=== PATIENT | female | born 1960 | race Caucasian/White ===

== ENCOUNTER → 2023-08-21 11:23 | Outpatient (CLI) | payer OTHER, SELFPAY ==
--- NOTE | 2023-08-21 11:27 | DI.MG.S_ITS ---
BILATERAL DIGITAL SCREENING MAMMOGRAM 3D/2D WITH CAD: 08/21/2023 CLINICAL: Routine screening. Baseline exam. No prior exams were available for comparison. Both breasts are heterogeneously dense, which may obscure small masses (category c / 51-75% glandular tissue). Current study was also evaluated with a Computer Aided Detection (CAD) system. No significant masses, calcifications, or other findings are seen in either breast. IMPRESSION: NEGATIVE There is no mammographic evidence of malignancy. A 1 year screening mammogram is recommended. Based on the Tyrer Cuzick model (a risk assessment model) the patient's lifetime risk is 5.9% and her 10 year risk is 2.6%. According to the ACR, ACS, and NCCN guidelines, an annual breast MRI exam along with mammogram is recommended if the patient's lifetime risk is 20% or greater. This exam was interpreted at Station ID: [id number]. NOTE: For mammograms, a report in lay terms will be sent to the patient. Approximately 15% of breast malignancies will not be visualized mammographically. In the management of a palpable breast mass, a negative mammogram must not discourage biopsy of a clinically suspicious lesion. Electronically Signed By: Wellington [email or web address]:08/21/2023 16:31:11 letter sent: Normal Exam ACR BI-RADS Category 1: Negative [id number]
--- NOTE | 2023-08-21 11:27 | DI.RAD.S_ITS ---
PROCEDURE: XR DEXA AXIAL SKELETON INDICATIONS: ROUTINE SCREENING COMPARISON: None. FINDINGS: Lumbar Spine: Bone mineral density 0.90 g/cm2, T score -1.4,. Left Hip: Bone mineral density 0.79 g/cm2, T score -1.3,. Left Femoral Neck: Bone mineral density is 0.67 g/cm2, T score -1.7,. Right Hip: Bone mineral density 0.74 g/cm2, T score -1.6,. Right Femoral Neck: Bone mineral density 0.68 g/cm2, T score -1.6,. Fracture Risk Calculation (when applicable): 10-year fracture risk of a major osteoporotic fracture 8.5% and of a hip fracture 0.9%. (T score greater or equal to -1.0 to: NORMAL) (T score from -1.1 to -2.4: OSTEOPENIA) (T score less than or equal to -2.5: OSTEOPOROSIS) IMPRESSION: Osteopenia, with FRAX calculation as above. Follow-up guidelines as follows: Osteoporosis: Consider a repeat DEXA and Vertebral Fracture Assessment (VFA) exam in 2 years or sooner if medically necessary, to reassess this patient's status. Osteopenia: Consider a repeat DEXA in 2-3 years to reassess this patient's status, or if there is a new clinical indication. Normal: Consider a repeat DEXA in 5 years or sooner, or if there is a new clinical indication. Dictated by: Rc Dinh M.D. on 08/21/2023 at 16:21 Approved by: Rc Dinh M.D. on 08/21/2023 at 16:22
== END ==
PROVIDERS: PCP Registered Nurse; Referring Provider Registered Nurse; Visit Provider Registered Nurse
DX: Z12.31 Encounter for screening mammogram for malignant neoplasm of breast (principal); R92.333 Mammographic heterogeneous density, bilateral breasts; M85.89 Other specified disorders of bone density and structure, multiple sites; Z78.0 Asymptomatic menopausal state
CPT/HCPCS: 77063; 77067; 77080